=== PATIENT | male | born 1955 | race Caucasian/White ===

== ENCOUNTER 2021-04-08 14:18 | Inpatient (IN) | payer MEDICARE, MEDICAID ==
[~2021-04-08] VITALS: Ht 157.5 cm; Wt 68.9 kg
[2021-04-08 15:36] LABS: BASOPHILS % 0.4 % (0.0-2.0); EOSINOPHILS % 2.1 % (0.0-5.0); HEMATOCRIT. 31.4 % (42.0-52.0); HEMOGLOBIN. 10.9 g/dL (14.0-18.0); LYMPHOCYTES % 16.6 % (20.0-50.0); MEAN CORPUSCULAR HEMOGLOBIN 29.4 pg (28.0-32.0); MEAN CORPUSCULAR VOLUME 84.4 fL (80.0-94.0); MEAN PLATELET VOLUME 7.2 fl (7.4-10.4); MONOCYTES % 7.4 % (2.0-8.0); NEUTROPHILS % 73.5 % (40.0-76.0); PLATELET 429 x1000/uL (130-400); RED BLOOD CELL COUNT 3.72 mill/uL (4.7-6.1); RED CELL DISTRIBUTION WIDTH 13.1 % (11.6-14.6)
[2021-04-08 15:40] LABS: CHLORIDE 91 mEq/L (98-107)
[2021-04-08] MEDS ORDERED: METOCLOPRAMIDE HCL 10MG/2ML VIAL IV ONE (17:00)
[2021-04-08] MEDS ORDERED: KETOROLAC 30MG/ML VIAL IV ONE (17:00)
[2021-04-08] MEDS ORDERED: ASPIRIN 325MG EC TABLET PO ONE (19:30)
[2021-04-08] MEDS ORDERED: METF-416 PO (22:57)
[2021-04-08] MEDS ORDERED: GLIP10TA10 PO (22:58)
[2021-04-08 23:00] VITALS: BP 119/65
[2021-04-08] MEDS ORDERED: LEVO50TA8 PO (23:03)
[2021-04-08] MEDS ORDERED: GEMF600T90 PO (23:03)
[2021-04-08] MEDS ORDERED: LISI40TA13 PO (23:03)
[2021-04-08] MEDS ORDERED: NAPR500T7 PO (23:03)
[2021-04-08] MEDS ORDERED: ONDANSETRON HCL 4MG/2ML INJ IV PRN (23:45)
[2021-04-08] MEDS ORDERED: DEXTROSE 50% WATER 50ML SYRINGE IV PRN (23:45)
[2021-04-08] MEDS ORDERED: ACETAMINOPHEN 650MG/20.3ML UDC PO PRN (23:45)
[2021-04-09] VITALS (7 sets, daily range): BP systolic 108–154; BP diastolic 59–77
[2021-04-09] MEDS ORDERED: PANTOPRAZOLE 40MG DR TABLET PO SCH
[2021-04-09] MEDS: SODIUM CHLORIDE 0.9% 1,000 ML IV SCH ×2 (00:41→13:06)
[2021-04-09] MEDS: PANTOPRAZOLE 40MG DR TABLET PO SCH (05:59)
[2021-04-09] MEDS: LEVOTHYROXINE SODIUM 50MCG TABLET PO SCH (05:59)
[2021-04-09] MEDS: BLOOD SUGAR DIAGNOSTIC STRIP TEST SCH ×4 (05:59→20:15)
[2021-04-09] MEDS: INSULIN LISPRO 100 UNITS/ML SUBCUT SCH ×4 (06:03→20:14)
[2021-04-09] MEDS: ACETAMINOPHEN 325MG TABLET PO PRN ×2 (06:14→23:55)
[2021-04-09 06:21] LABS: BASOPHILS % 0.6 % (0.0-2.0); HEMATOCRIT. 29.6 % (42.0-52.0); HEMOGLOBIN. 10.3 g/dL (14.0-18.0); LYMPHOCYTES % 27.1 % (20.0-50.0); MEAN CORPUSCULAR HEMOGLOBIN 29.3 pg (28.0-32.0); MEAN CORPUSCULAR VOLUME 84.1 fL (80.0-94.0); MEAN PLATELET VOLUME 7.3 fl (7.4-10.4); MONOCYTES % 10.1 % (2.0-8.0); NEUTROPHILS % 58.2 % (40.0-76.0); PLATELET 398 x1000/uL (130-400); RED BLOOD CELL COUNT 3.52 mill/uL (4.7-6.1); RED CELL DISTRIBUTION WIDTH 13.3 % (11.6-14.6)
[2021-04-09 06:29] LABS: CHLORIDE 92 mEq/L (98-107)
[2021-04-09 06:35] LABS: LDL CHOLESTEROL 87 mg/dL (5-100)
[2021-04-09 06:36] LABS: CREATINE KINASE 575 IU/L (39-308); SODIUM URINE RANDOM 39 mEq/L
[2021-04-09 06:37] LABS: HDL CHOLESTEROL 43 mg/dL (40-59)
[2021-04-09 06:39] LABS: CREATINE KINASE MB FRACTION 7.4 ng/mL (0.5-3.6)
[2021-04-09 06:43] LABS: *AMPHETAMINES SCREEN URINE NEGATIVE (NEGATIVE)
[2021-04-09 06:45] LABS: *BARBITURATES SCREEN URINE NEGATIVE (NEGATIVE); *BENZODIAZEPINES SCREEN URINE NEGATIVE (NEGATIVE); *COCAINE SCREEN URINE NEGATIVE (NEGATIVE); CANNABINOID URINE SCREEN NEGATIVE (NEGATIVE); METHADONE URINE SCREEN NEGATIVE (NEGATIVE); OPIATES URINE SCREEN NEGATIVE (NEGATIVE); PHENCYCLIDINE URINE SCREEN NEGATIVE (NEGATIVE)
[2021-04-09] MEDS ORDERED: ENOXAPARIN 40MG/0.4ML SYR SUBCUT SCH (09:00)
[2021-04-09] MEDS: ASPIRIN 81MG TABLET PO SCH (09:30)
[2021-04-09] MEDS: NITROGLYCERIN SPRAY/4.9GM CAN TL SCH ×2 (12:30→13:26)
[2021-04-09] MEDS: LISINOPRIL 40MG TABLET PO SCH (13:03)
[2021-04-09] MEDS ORDERED: METOPROLOL TARTRATE 5MG/5ML VIAL IV ONE (13:38)
[2021-04-09] MEDS ORDERED: BISACODYL 10MG SUPP PR PRN (13:45)
[2021-04-09] MEDS ORDERED: METOPROLOL TARTRATE 5MG/5ML VIAL IV SCH (13:45)
[2021-04-09] MEDS ORDERED: IPRATROPIUM/ALBUTEROL 0.5-3(2.5)MG/3ML NEB HHN PRN (13:45)
[2021-04-09] MEDS ORDERED: IOHEXOL-350 100 ML BOTTLE ONE ×2 (14:05→14:54)
[2021-04-09 15:12] LABS: CLARITY URINE CLEAR (CLEAR); COLOR URINE YELLOW (YELLOW); KETONES URINE NEGATIVE (NEGATIVE); LEUKOCYTE ESTERASE URINE NEGATIVE (NEGATIVE); NITRITE URINE NEGATIVE (NEGATIVE); OCCULT BLOOD URINE NEGATIVE (NEGATIVE); PROTEIN URINE NEGATIVE (NEGATIVE); UROBILINOGEN URINE 0.2 E.U./dL (0.2-1.0)
[2021-04-09 19:57] LABS: INR 1.1; PROTHROMBIN TIME 11.3 sec (9.6-11.0)
[2021-04-09 20:30] LABS: CREATINE KINASE 494 IU/L (39-308); CREATINE KINASE 496 IU/L (39-308)
[2021-04-09 20:35] LABS: CREATINE KINASE MB FRACTION 5.6 ng/mL (0.5-3.6); CREATINE KINASE MB FRACTION 5.8 ng/mL (0.5-3.6)
[2021-04-09 21:35] LABS: CHLORIDE 99 mEq/L (98-107)
[2021-04-10] VITALS: BP 117/62
[2021-04-10] MEDS: SODIUM CHLORIDE 0.9% 1,000 ML IV SCH ×2 (00:06→14:00)
[2021-04-10 04:00] VITALS: BP 102/54
[2021-04-10] MEDS: INSULIN LISPRO 100 UNITS/ML SUBCUT SCH ×4 (06:22→20:56)
[2021-04-10] MEDS: BLOOD SUGAR DIAGNOSTIC STRIP TEST SCH ×4 (06:22→20:55)
[2021-04-10] MEDS: LEVOTHYROXINE SODIUM 50MCG TABLET PO SCH (06:31)
[2021-04-10] MEDS: PANTOPRAZOLE 40MG DR TABLET PO SCH (06:31)
[2021-04-10 08:25] LABS: CHLORIDE 101 mEq/L (98-107)
[2021-04-10 08:29] LABS: BASOPHILS % 0.8 % (0.0-2.0); EOSINOPHILS % 3.4 % (0.0-5.0); HEMATOCRIT. 28.8 % (42.0-52.0); HEMOGLOBIN. 10.1 g/dL (14.0-18.0); LYMPHOCYTES % 20.7 % (20.0-50.0); MEAN CORPUSCULAR HEMOGLOBIN 29.7 pg (28.0-32.0); MEAN CORPUSCULAR VOLUME 84.6 fL (80.0-94.0); MEAN PLATELET VOLUME 7.5 fl (7.4-10.4); MONOCYTES % 8.4 % (2.0-8.0); NEUTROPHILS % 66.7 % (40.0-76.0); PLATELET 425 x1000/uL (130-400); RED CELL DISTRIBUTION WIDTH 13.4 % (11.6-14.6)
[2021-04-10] MEDS: ENOXAPARIN 40MG/0.4ML SYR SUBCUT SCH (09:00)
[2021-04-10] MEDS: ASPIRIN 81MG TABLET PO SCH (09:32)
[2021-04-10] MEDS: LISINOPRIL 40MG TABLET PO SCH (09:33)
[2021-04-10 12:00] VITALS: BP 126/65
[2021-04-10] MEDS: HYDROCODONE/ACETAMINOPHEN 5/325MG TABLET PO PRN ×2 (15:50→20:48)
[2021-04-10 16:00] VITALS: BP 116/45
[2021-04-10 20:00] VITALS: BP 136/59
[2021-04-10] MEDS: GABAPENTIN 300MG CAPSULE PO SCH (20:46)
[2021-04-10] MEDS: FAMOTIDINE 20MG TABLET PO SCH (20:47)
[2021-04-10] MEDS: CARVEDILOL 3.125 MG TABLET PO SCH (20:47)
[2021-04-10] MEDS: ATORVASTATIN CALCIUM 40MG TABLET PO SCH (20:54)
[2021-04-11] VITALS: BP 137/66
[2021-04-11 04:00] VITALS: BP 100/54
[2021-04-11] MEDS: SODIUM CHLORIDE 0.9% 1,000 ML IV SCH (04:13)
[2021-04-11] MEDS: INSULIN LISPRO 100 UNITS/ML SUBCUT SCH ×4 (06:27→21:51)
[2021-04-11] MEDS: LEVOTHYROXINE SODIUM 50MCG TABLET PO SCH (06:27)
[2021-04-11] MEDS: FAMOTIDINE 20MG TABLET PO SCH ×2 (06:28→21:52)
[2021-04-11] MEDS: BLOOD SUGAR DIAGNOSTIC STRIP TEST SCH ×4 (06:30→21:45)
[2021-04-11 07:15] LABS: CHLORIDE 104 mEq/L (98-107)
[2021-04-11 07:44] LABS: EOSINOPHILS % 6.2 % (0.0-5.0); HEMATOCRIT. 29.3 % (42.0-52.0); HEMOGLOBIN. 10.4 g/dL (14.0-18.0); LYMPHOCYTES % 24.7 % (20.0-50.0); MEAN CORPUSCULAR VOLUME 84.4 fL (80.0-94.0); MEAN PLATELET VOLUME 7.5 fl (7.4-10.4); MONOCYTES % 7.5 % (2.0-8.0); NEUTROPHILS % 60.6 % (40.0-76.0); PLATELET 414 x1000/uL (130-400); RED BLOOD CELL COUNT 3.48 mill/uL (4.7-6.1); RED CELL DISTRIBUTION WIDTH 13.2 % (11.6-14.6)
[2021-04-11 08:00] VITALS: BP 119/56
[2021-04-11] MEDS: ENOXAPARIN 40MG/0.4ML SYR SUBCUT SCH (10:18)
[2021-04-11] MEDS: CARVEDILOL 3.125 MG TABLET PO SCH ×2 (10:19→21:52)
[2021-04-11] MEDS: ASPIRIN 81MG TABLET PO SCH (10:19)
[2021-04-11] MEDS: LISINOPRIL 40MG TABLET PO SCH (10:19)
[2021-04-11] MEDS: HYDROCODONE/ACETAMINOPHEN 5/325MG TABLET PO PRN (10:26)
[2021-04-11 12:00] VITALS: BP 124/77
[2021-04-11] MEDS: DEXT 5%/0.9% NACL 1,000 ML IV SCH (14:57)
[2021-04-11 16:00] VITALS: BP 118/68
[2021-04-11 20:00] VITALS: BP 128/59
[2021-04-11] MEDS: ATORVASTATIN CALCIUM 40MG TABLET PO SCH (21:52)
[2021-04-11] MEDS: GABAPENTIN 300MG CAPSULE PO SCH (21:52)
[2021-04-12] VITALS: BP 135/66
[2021-04-12] MEDS: HYDROCODONE/ACETAMINOPHEN 5/325MG TABLET PO PRN (01:02)
[2021-04-12 04:00] VITALS: BP 128/60
[2021-04-12 06:04] LABS: CHLORIDE 107 mEq/L (98-107)
[2021-04-12] MEDS: INSULIN LISPRO 100 UNITS/ML SUBCUT SCH ×4 (06:46→20:32)
[2021-04-12] MEDS: BLOOD SUGAR DIAGNOSTIC STRIP TEST SCH ×4 (06:46→20:32)
[2021-04-12] MEDS: DEXT 5%/0.9% NACL 1,000 ML IV SCH (06:47)
[2021-04-12] MEDS: LEVOTHYROXINE SODIUM 50MCG TABLET PO SCH (07:05)
[2021-04-12] MEDS: FAMOTIDINE 20MG TABLET PO SCH ×2 (07:05→20:31)
[2021-04-12 07:33] LABS: BASOPHILS % 0.7 % (0.0-2.0); EOSINOPHILS % 7.2 % (0.0-5.0); HEMATOCRIT. 28.6 % (42.0-52.0); MEAN CORPUSCULAR HEMOGLOBIN 29.4 pg (28.0-32.0); MEAN CORPUSCULAR VOLUME 84.1 fL (80.0-94.0); MEAN PLATELET VOLUME 7.7 fl (7.4-10.4); MONOCYTES % 7.6 % (2.0-8.0); NEUTROPHILS % 56.5 % (40.0-76.0); PLATELET 411 x1000/uL (130-400)
[2021-04-12 08:00] VITALS: BP 137/65
[2021-04-12] MEDS ORDERED: HEPARIN SODIUM 1,000 UNIT/1ML VIAL IV ONE (08:05)
[2021-04-12] MEDS ORDERED: NICARDIPINE 100MCG/ML 10ML VIAL (CATH LAB) IV ONE (08:05)
[2021-04-12] MEDS ORDERED: NITROGLYCERIN 50MCG/ML 10ML VIAL (CATH LAB) IV ONE (08:05)
[2021-04-12] MEDS: LISINOPRIL 40MG TABLET PO SCH ×2 (09:00→10:19)
[2021-04-12] MEDS: CARVEDILOL 3.125 MG TABLET PO SCH ×2 (09:00→10:19)
[2021-04-12] MEDS: ASPIRIN 81MG TABLET PO SCH ×2 (09:00→10:19)
[2021-04-12] MEDS ORDERED: ASPIRIN/SOD BICARB/CITRIC ACID 324MG TAB EFF ONE (11:38)
[2021-04-12] MEDS ORDERED: IOHEXOL-300 100 ML BOTTLE ONE (11:38)
[2021-04-12] MEDS ORDERED: LIDOCAINE HCL 1% 20ML VIAL (Pyxis) INJ ONE (11:40)
[2021-04-12] MEDS ORDERED: IODIXANOL 320MG/ML 100 ML BOTTLE IV ONE (11:40)
[2021-04-12] MEDS ORDERED: FENTANYL CITRATE/PF 50MCG/ML 2ML VIAL ONE (12:50)
[2021-04-12] MEDS ORDERED: MIDAZOLAM HCL 2 MG/2 ML VIAL ONE (12:50)
[2021-04-12] MEDS ORDERED: MORPHINE SULFATE 2 MG/ML CPJ (NOT FOR IM USE) IV PRN (13:30)
[2021-04-12] MEDS ORDERED: ACETAMINOPHEN 325MG TABLET PO PRN (13:30)
[2021-04-12] MEDS ORDERED: SODIUM CHLORIDE 0.9% 500 ML IV ONE (13:30)
[2021-04-12] MEDS ORDERED: ATROPINE SULFATE 1MG/10ML SYR IV PRN (13:30)
[2021-04-12] MEDS ORDERED: COR3 MT (14:24)
[2021-04-12] MEDS ORDERED: ASPI-1497 MT (14:24)
[2021-04-12] MEDS ORDERED: LIP40 MT (14:24)
[2021-04-12 18:45] VITALS: BP 137/65
[2021-04-12 20:00] VITALS: BP 128/58
[2021-04-12] MEDS: GABAPENTIN 300MG CAPSULE PO SCH (20:31)
[2021-04-12] MEDS: ATORVASTATIN CALCIUM 40MG TABLET PO SCH (20:31)
== END 2021-04-12 21:06 | disposition home or self-care (01) | DRG 286 ==
LOC: ER 14:18 → 8WST 19:17 → ENRESERV 20:53
PROVIDERS: ADMIT Internal Medicine; ATTEND Internal Medicine
PROC: 4A023N7 Measurement of Cardiac Sampling and Pressure, Left Heart, Percutaneous Approach (ICD-10-PCS; principal; 2021-04-12)
PROC: B2111ZZ Fluoroscopy of Multiple Coronary Arteries using Low Osmolar Contrast (ICD-10-PCS; 2021-04-12)
PROC: B2151ZZ Fluoroscopy of Left Heart using Low Osmolar Contrast (ICD-10-PCS; 2021-04-12)
DX: I25.119 Atherosclerotic heart disease of native coronary artery with unspecified angina pectoris (principal); I50.43 Acute on chronic combined systolic (congestive) and diastolic (congestive) heart failure; E87.1 Hypo-osmolality and hyponatremia; D64.9 Anemia, unspecified; E03.9 Hypothyroidism, unspecified; E11.9 Type 2 diabetes mellitus without complications; E78.5 Hyperlipidemia, unspecified; M48.061 Spinal stenosis, lumbar region without neurogenic claudication; I11.0 Hypertensive heart disease with heart failure; I25.10 Atherosclerotic heart disease of native coronary artery without angina pectoris; K57.90 Diverticulosis of intestine, part unspecified, without perforation or abscess without bleeding; M47.816 Spondylosis without myelopathy or radiculopathy, lumbar region; Z20.822 Contact with and (suspected) exposure to COVID-19; E05.90 Thyrotoxicosis, unspecified without thyrotoxic crisis or storm; I44.0 Atrioventricular block, first degree; N40.0 Benign prostatic hyperplasia without lower urinary tract symptoms; Z79.84 Long term (current) use of oral hypoglycemic drugs; Z79.899 Other long term (current) drug therapy; Z86.69 Personal history of other diseases of the nervous system and sense organs
CPT/HCPCS: 36415; 71045; 74176; 75571; 80048; 80053; 80061; 80305; 81003; 82533; 82550; 82553; 82962; 83036; 83880; 83935; 84153; 84300; 84436; 84443; 84484; 85025; 85347; 86850; 86900; 87426; 93005; 93306; 93458; 97161; 99285; C1769; C1887; C1893; J1644; J1650; J1815; J1885; J2250; J2765; J3010; J3490; J7030; J7042; Q9967; G0103